=== PATIENT | male | born 1955 | race Caucasian/White ===

== ENCOUNTER → 2017-09-29 | Outpatient (CLI) | payer OTHER | LOC: EDSTATUS 15:55 → CIMAGING 16:00 | PROVIDERS: ATTEND Internal Medicine Cardiovascular Disease | DX: I82.432 Acute embolism and thrombosis of left popliteal vein (principal) | CPT/HCPCS: 93971-PO ==

== ENCOUNTER 2018-11-10 08:13 | Observation (INO) | payer OTHER ==
[2018-11-10] MEDS ORDERED: diphenhydrAMINE 25 MG CAP PO ONE (08:15)
[2018-11-10] MEDS ORDERED: FAMOTIDINE 20 MG TAB PO ONE (08:15)
[2018-11-10] MEDS ORDERED: NS 1,000 ML IV ONE (08:15)
[2018-11-10] MEDS ORDERED: DIAZEPAM 5 MG TAB PO ONE (08:15)
[2018-11-10] MEDS ORDERED: ASPIRIN EC 325 MG TAB PO ONE (08:15)
--- NOTE | 2018-11-10 08:45 | PDHPUP ---
History & Physical Update H&P update statement: This history and physical update is based on an assessment of the patient which was completed after admission or registration (within 24 hours), but prior to the surgery/procedure. H&P update: H&P reviewed & patient examined, no change in patient's condition since H&P completed
--- NOTE | 2018-11-10 08:45 | PDPROPOC ---
Sedation Plan of Care Sedation Plan of Care: vital signs stable, mental status noted, patient educated of risks, benefits, alternatives, patient can tolerate sedation ASA Classification: ASA 2 Planned drugs: fentanyl, midazolam Mallampati Score: Class 2 Mallampati Reference Image: Patient passed 3-3-2 rule?: Yes
[2018-11-10 09:04] LABS: PLATELET COUNT 157 10^3/uL (150-400)
[2018-11-10 09:34] LABS: INR 1.07 (0.83-1.16); PROTIME(PATIENT) 14.1 SEC (12.0-15.0)
[2018-11-10] MEDS ORDERED: LIDOCAINE 1% 300 MG/30 ML SDV ONE (10:57)
[2018-11-10] MEDS ORDERED: fentaNYL 100 MCG/2 ML INJ ONE (10:57)
[2018-11-10] MEDS ORDERED: MIDAZOLAM 2 MG/2 ML VIAL ONE (10:58)
[2018-11-10] MEDS ORDERED: IOPAMIDOL (ISOVUE-370) 150 ML BTL IV ONE ×2 (10:58→11:44)
[2018-11-10] MEDS ORDERED: BIVALIRUDIN 250 MG/5 ML VIAL IV ONE (11:30)
[2018-11-10] MEDS ORDERED: NITROGLYCERIN 1,500 MCG/15 ML VIAL MISC ONE (11:40)
[2018-11-10] MEDS ORDERED: CLOPIDOGREL BISULFATE 75 MG TAB ONE (11:53)
[2018-11-10] MEDS ORDERED: LORazepam 2 MG/ML INJ IVP PRN (12:13)
[2018-11-10] MEDS ORDERED: HYDROCODONE/APAP 5/325 TAB PO PRN (12:13)
[2018-11-10] MEDS ORDERED: TEMAZEPAM 15 MG CAP PO PRN (12:13)
[2018-11-10] MEDS ORDERED: ONDANSETRON 4 MG/2 ML VIAL IVP PRN (12:13)
[2018-11-10] MEDS ORDERED: OXYCODONE/APAP 5/325 TAB PO PRN (12:13)
[2018-11-10] MEDS ORDERED: ATROPINE SULFATE 1 MG/10 ML SYR IVP PRN (12:13)
[2018-11-10] MEDS ORDERED: CLOPIDOGREL BISULFATE 75 MG TAB PO ONE (12:13)
[2018-11-10] MEDS ORDERED: NITROGLYCERIN 0.4 MG BTL SL PRN (12:13)
--- NOTE | 2018-11-10 23:40 | CPIP ---
DATE OF PROCEDURE: 11/10/2018 PROCEDURE: 1. Coronary angiography. 2. Left ventriculography. 3. Stenting of left anterior descending coronary artery with Synergy drug-eluting stent. INDICATION: 1. Class II-III angina. 2. Known coronary artery disease. ACCESS: The patient was prepped and draped in sterile fashion. 1% lidocaine was used to anesthetize the right inguinal region. A 6-Argentine introducer sheath was placed selectively into the right commo n femoral artery via modified Seldinger technique. CORONARY ANGIOGRAPHY: A 6-Argentine JL4 was advanced to the left main coronary artery and images obtain ed. The left main coronary artery bifurcated into an LAD and circumflex coronary arteries. The left main coronary artery appeared normal. The left anterior descending coronary artery was diffusely di seased in the proximal mid segments. In the proximal segment, there was a discrete 40% stenosis pres ent. In the mid 1 segment, there was a discrete 80% stenosis present, and in the mid 2 segment, ther e was a discrete 70% to 75% stenosis present. The circumflex coronary artery was a moderate-sized ve ssel. The circumflex coronary artery had mild diffuse disease throughout. There was no stenosis gre ater than 20%. The 6-Argentine JR4 was advanced to the right coronary artery and images obtained. The right coronary artery was dominant. The right coronary artery had a 15% stenosis in the proximal seg ment as well as a 20% stenosis in the posterolateral system. LEFT VENTRICULOGRAPHY: A 6-Argentine pigtail catheter was advanced into the left ventricle and images o btained. The left ventricle is normal in size and had normal systolic function. Estimated ejection fraction was 70%. There were no segmental wall motion abnormalities. PERCUTANEOUS CORONARY INTERVENTION OF THE LEFT ANTERIOR DESCENDING CORONARY ARTERY: A 6-Argentine JL4 w as advanced to left main coronary artery and images obtained. Angiography confirmed the presence of high-grade disease involving the mid left anterior descending coronary artery. A Luge wire was place d in the distal vessel and position verified by angiography. A 2.5 x 20 Emerge balloon was used to p re-dilate the mid lesion. Followup angiography demonstrated significant residual stenosis and MORELIA-3 flow. A 2.5 x 24 Synergy drug-eluting stent was then placed across the lesion and deployed. Follow up angiography demonstrated MORELIA-3 flow. No residual stenosis. COMPLICATIONS: None. CONCLUSIONS: 1. Single-vessel coronary artery disease. 2. Normal left ventricular size and systolic function. 3. Status post successful placement of Synergy drug-eluting stent in the mid left anterior descendin g coronary artery. /[id number]/MODL
[2018-11-11] MEDS ORDERED: CLOPIDOGREL BISULFATE 75 MG TAB PO SCH (09:00)
[2018-11-11] MEDS ORDERED: ASPIRIN EC 325 MG TAB PO SCH (09:00)
[2018-11-11] MEDS ORDERED: CANDESARTAN CILEXETIL 8 MG TAB PO SCH (09:00)
[2018-11-11] MEDS ORDERED: CHOLECALCIFEROL VIT D3 2,000 UNITS TAB/CAP PO SCH (09:00)
[2018-11-11] MEDS ORDERED: ATORVASTATIN CALCIUM 10 MG TAB PO SCH (09:00)
[2018-11-11 10:34] VITALS: BP 102/54
--- NOTE | 2018-11-11 13:52 | CPEKG ---
Test Reason : OPEN Blood Pressure : / mmHG Vent. Rate : 063 BPM Atrial Rate : 064 BPM P-R Int : 161 ms QRS Dur : 086 ms QT Int : 385 ms P-R-T Axes : 055 028 036 degrees QTc Int : 395 ms Sinus rhythm Abnormal R-wave progression, early transition Confirmed by Singh Cameron ([id number]) on 11/11/2018 1:52:13 PM Referred By: Confirmed By:Singh Cameron
--- NOTE | 2018-11-11 13:57 | CPEKG ---
Test Reason : OPEN Blood Pressure : / mmHG Vent. Rate : 068 BPM Atrial Rate : 068 BPM P-R Int : 159 ms QRS Dur : 087 ms QT Int : 391 ms P-R-T Axes : 019 036 016 degrees QTc Int : 416 ms Sinus rhythm Abnormal R-wave progression, early transition Confirmed by Singh Cameron ([id number]) on 11/11/2018 1:57:30 PM Referred By: Confirmed By:Singh Cameron
--- NOTE | 2018-11-11 14:04 | GDS ---
DISCHARGE DIAGNOSES: 1. Coronary artery disease, based on coronary artery calcium scoring. 2. New onset chest pain with weightlifting and ambulation up stairs. 3. Occlusive disease involving the mid left anterior descending artery, status post percutaneous int ervention in this admission. 4. Hypertension. 5. Dyslipidemia. 6. History of pulmonary embolus. 7. History of pre-diabetes. PROCEDURES: On 11/10/2018, left heart catheterization. Findings: Single-vessel coronary artery dis ease involving the mid LAD, status post successful percutaneous intervention with a Synergy drug-elut ing stent. BRIEF HISTORY: Please see dictated H and P for complete details. In brief, the patient is a 63-year -old male with a history of CAD, pre-diabetes, hypertension, and dyslipidemia, who presented to [facility] after having a calcium score that was elevated. He had been noting some substernal chest press ure with weightlifting and climbing stairs. Options were reviewed, and patient proceeded to left hea rt catheterization on 11/10/2018. HOSPITAL COURSE BY PROBLEM: 1. Obstructive disease involving the LAD. He is status post PTCA and stenting. We reviewed the imp ortance of dual antiplatelet therapy. 2. Dyslipidemia. His LDL is 67 at time of discharge. PHYSICAL EXAM: VITAL SIGNS: On day of discharge, blood pressure of 102/54, heart rate 65, respirati ons 14, O2 saturation 95% on room air, temp of 98.2 degrees Fahrenheit. GENERAL: He is a very pleas ant male in no apparent distress. HEENT: Head is normocephalic, atraumatic. Eyes are without scler al icterus. HEART: Regular rate and rhythm. LUNGS: Clear. SKIN: Right groin site without ecchym osis or bruit. EXTREMITIES: He has 2+ PT and DP pulses bilaterally. LABORATORY DATA: CBC with WBC 5.24, hemoglobin 17.4, hematocrit of 48.9, platelet count 157. BMP wi th sodium 142, potassium 4.5, chloride 109, CO2 24, BUN 21, creatinine 0.9, glucose 133, triglyceride s 54, total cholesterol 127, LDL of 67, HDL of 49. RESULTS PENDING: None. DIET: Cardiac diet reviewed. ACTIVITY: Groin precautions were reviewed. DISCHARGE MEDICATIONS: Please see med reconciliation for complete details. He is being continued on his home Atacand, atorvastatin, and cholecalciferol. His aspirin is being increased to 325 mg p.o. daily, and he is being started on Plavix 75 mg p.o. daily. DISCHARGE INSTRUCTIONS: Discharge with followup as scheduled. /[id number]/MODL
--- NOTE | 2018-11-11 14:05 | CPEKG ---
Test Reason : OPEN Blood Pressure : / mmHG Vent. Rate : 064 BPM Atrial Rate : 061 BPM P-R Int : 154 ms QRS Dur : 087 ms QT Int : 372 ms P-R-T Axes : 053 036 -15 degrees QTc Int : 384 ms Sinus rhythm Inferoposterior infarct, age indeterminate Confirmed by Singh Cameron ([id number]) on 11/11/2018 2:05:43 PM Referred By: Confirmed By:Singh Cameron
== END 2018-11-11 10:40 | disposition home or self-care (01) ==
LOC: FCATH 08:13 → F2W 12:13
PROVIDERS: ADMIT Internal Medicine Cardiovascular Disease; ATTEND Internal Medicine Cardiovascular Disease
PROC: 4A02XFZ Measurement of Cardiac Rhythm, External Approach (ICD-10-PCS; principal; 2018-11-10)
PROC: 027034Z Dilation of Coronary Artery, One Artery with Drug-eluting Intraluminal Device, Percutaneous Approach (ICD-10-PCS; principal; 2018-11-10)
PROC: B2151ZZ Fluoroscopy of Left Heart using Low Osmolar Contrast (ICD-10-PCS; principal; 2018-11-10)
PROC: B2111ZZ Fluoroscopy of Multiple Coronary Arteries using Low Osmolar Contrast (ICD-10-PCS; principal; 2018-11-10)
DX: I25.119 Atherosclerotic heart disease of native coronary artery with unspecified angina pectoris (principal); R07.89 Other chest pain; I10 Essential (primary) hypertension; E78.5 Hyperlipidemia, unspecified; Z86.711 Personal history of pulmonary embolism
CPT/HCPCS: 92928; 93005; 93458; C1725; C1769; C1887; G0378; C1874; C9600; J0583; J1644; J2250; J2270; J2405; J3010; Q9967